=== PATIENT | female | born 1945 | race American Indian/Alaskan Native ===

== ENCOUNTER 2016-06-12 13:19 | Outpatient (CLI) | payer MEDICARE, OTHER ==
[2016-06-12 13:45] LABS: Hematocrit 34.3 % (30.3-42.9); Hemoglobin 11.6 gm/dl (10.1-14.3); Mean Corpuscular HGB Conc 34 % (30-34); Mean Corpuscular Hemoglobin 30 pg (28-32); Mean Corpuscular Volume 87 fl (79-97); Platelet Count 245 K/mm3 (140-440); Red Blood Count 3.92 M/mm3 (3.65-5.03); Red Cell Distribution Width 15.6 % (13.2-15.2); White Blood Count 9.6 K/mm3 (4.5-11.0)
[2016-06-12 14:10] LABS: BUN/Creatinine Ratio 14.61; Calcium 9.7 mg/dL (8.4-10.2); Phosphorous 4.7 mg/dL (2.5-4.5); Potassium 4.5 mmol/L (3.6-5.0)
== END 2016-06-12 13:20 | disposition home or self-care (01) ==
LOC: LAB 13:19
PROVIDERS: ATTEND Internal Medicine
DX: I12.9 Hypertensive chronic kidney disease with stage 1 through stage 4 chronic kidney disease, or unspecified chronic kidney disease (principal); N18.3 Chronic kidney disease, stage 3 (moderate); E11.22 Type 2 diabetes mellitus with diabetic chronic kidney disease; D63.1 Anemia in chronic kidney disease; E55.9 Vitamin D deficiency, unspecified
CPT/HCPCS: 36415; 80048; 82040; 82570; 84100; 84156; 85027

== ENCOUNTER 2017-01-10 13:43 | Outpatient (CLI) | payer MEDICARE, OTHER ==
--- NOTE | 2017-01-10 19:44 | XRay Report ---
FINAL REPORT EXAM: XR KNEE BILAT 4+V HISTORY: BILAT KNEE PAIN TECHNIQUE: Bilateral knees 7 views PRIORS: None. FINDINGS: There are bilateral total knee replacements. Prostatic components are intact and demonstrate normal expected positioning. No evidence for joint effusions. No bony fractures or abnormal bony lucencies are identified bilaterally. IMPRESSION: Bilateral total knee replacements with expected findings. No acute abnormality seen
== END 2017-01-10 13:44 | disposition home or self-care (01) ==
LOC: SPVIMAG 13:43
PROVIDERS: ATTEND Orthopaedic Surgery Sports Medicine
DX: M25.562 Pain in left knee (principal); M25.561 Pain in right knee; Z96.653 Presence of artificial knee joint, bilateral

== ENCOUNTER 2017-01-12 13:19 | Emergency (ER) | payer MEDICARE, OTHER ==
[2017-01-12 14:20] LABS: Hematocrit 37.6 % (30.3-42.9); Hemoglobin 12.7 gm/dl (10.1-14.3); Mean Corpuscular HGB Conc 34 % (30-34); Mean Corpuscular Hemoglobin 30 pg (28-32); Mean Corpuscular Volume 89 fl (79-97); Platelet Count 252 K/mm3 (140-440); Red Blood Count 4.23 M/mm3 (3.65-5.03); Red Cell Distribution Width 14.2 % (13.2-15.2); White Blood Count 6.2 K/mm3 (4.5-11.0)
[2017-01-12 14:23] LABS: Albumin 4.1 g/dL (3.9-5); Albumin/Globulin Ratio 1.5 %; Bilirubin,Total 0.2 mg/dL (0.1-1.2); Calcium 8.5 mg/dL (8.4-10.2); Chloride 98.4 mmol/L (98-107); Potassium 3.4 mmol/L (3.6-5.0); Total Protein 6.9 g/dL (6.3-8.2)
[2017-01-12] MEDS ORDERED: SUBLIMAZE IV ONE (15:55)
[2017-01-12] MEDS ORDERED: ZOFRAN IV ONE (15:55)
--- NOTE | 2017-01-12 16:00 | Emergency Department Report ---
HPI - General Chief Complaint: Back Pain/Injury Time Seen by Provider: 01/12/17 15:49 - HPI HPI: Room 26 The patient is a 71-year-old female presenting with chief complaint of right flank pain. Patient states this morning she developed pain in her right back and sharp and constant in nature. Patient denies dysuria or hematuria. Patient denies nausea or vomiting. Patient denies fever or other pain. Patient gives her flank pain score of 8/10 Location: Right back Duration: Constant since this morning Quality: Sharp Severity: 8/10 Modifying factors: [see above] Context: [see above] Mode of transportation: [not driving] ED Past Medical Hx - Past Medical History Hx Hypertension: Yes Hx Diabetes: Yes Hx GERD: Yes Hx Renal Disease: Yes Hx Arthritis: Yes Hx Headaches / Migraines: Yes Hx Kidney Stones: Yes - Surgical History Additional Surgical History: CLARI knee surg - Family History Family history: no significant - Social History Smoking Status: Never Smoker Substance Use Type: None - Medications Home Medications: Home Medications Medication Instructions Recorded Confirmed Last Taken Type Ascorbic Acid [Vitamin C] 1,000 mg PO DAILY 07/31/14 01/29/15 Unknown History Aspirin [Adult Low Dose Aspirin EC] 81 mg PO BID 07/31/14 01/29/15 01/28/15 History Atorvastatin (Nf) [Lipitor (Nf)] 10 mg PO DAILY 07/31/14 01/29/15 01/28/15 History Calcium Carb,Gluc/Mag Ox,Gluc 1 tab PO DAILY 07/31/14 01/29/15 01/28/15 History [Calcium Magnesium Caplet] Cholecalciferol Vit D3 [Vitamin D3] 2,000 unit PO QDAY 07/31/14 01/29/15 History Docusate Sodium [Colace] 100 mg PO BID 07/31/14 01/29/15 01/28/15 History Esomeprazole Magnesium [NexIUM] 10 mg PO QDAY 07/31/14 01/29/15 01/28/15 History HYDROcodone/ACETAMINOPHEN 1 tab PO DAILY 07/31/14 01/29/15 01/28/15 History [HYDROcodone-Acetaminophen 5-300 mg] Hydrochlorothiazide [Hctz] 12.5 mg PO QDAY 07/31/14 01/29/15 01/28/15 History Multivitamins-Mineral [Theragran-M] 1 tab PO DAILY 07/31/14 01/29/15 01/28/15 History Propranolol HCl 20 mg PO BID 07/31/14 01/29/15 01/28/15 History Risedronate Sodium [Atelvia] 35 mg PO QWEEK 07/31/14 01/29/15 01/27/15 History traMADol [Ultram 50 MG tab] 50 mg PO BID 07/31/14 01/29/15 01/28/15 History HYDROcodone/APAP 10-325 [Colwell 1 each PO Q6HR PRN #20 tablet 01/29/15 Unknown Rx 10/325] Insulin Glargine [Lantus] 0 units SQ QHS 01/29/15 01/29/15 1 Day Ago History ~01/28/15 amLODIPine [Norvasc] 10 mg PO DAILY 01/29/15 01/29/15 1 Day Ago History ~01/28/15 HYDROcodone/APAP 5-325 [[place]well 1 - 2 each PO Q6HR PRN #10 tablet 01/12/17 Unknown Rx 5/325] ED Review of Systems ROS: Stated complaint: BACK PAIN Other details as noted in HPI Constitutional: denies: fever Eyes: denies: eye pain ENT: denies: ear pain Cardiovascular: denies: chest pain Gastrointestinal: other (right flank pain). denies: nausea, vomiting Genitourinary: denies: urgency, dysuria Musculoskeletal: back pain Neurological: denies: headache Physical Exam - Physical Exam Vital Signs: Vital Signs 01/12/17 13:37 Temperature 98.9 F Pulse Rate 79 Respiratory 18 Rate Blood Pressure 159/74 O2 Sat by Pulse 99 Oximetry Physical Exam: GENERAL: The patient is well-developed well-nourished female lying on stretcher not appearing to be in acute distress. [] HEENT: Normocephalic. Atraumatic. Extraocular motions are intact. Patient has moist mucous membranes. NECK: Supple. Trachea midline CHEST/LUNGS: Clear to auscultation. There is no respiratory distress noted. HEART/CARDIOVASCULAR: Regular. There is no tachycardia. There is no gallop rub or murmur. ABDOMEN: Abdomen is soft, nontender. Patient has normal bowel sounds. There is no abdominal distention. SKIN: There is no rash. There is no edema. There is no diaphoresis. NEURO: The patient is awake, alert, and oriented. The patient is cooperative. The patient has normal speech MUSCULOSKELETAL: There is right flank pains. There is no evidence of acute injury. ED Course Vital Signs 01/12/17 13:37 Temperature 98.9 F Pulse Rate 79 Respiratory 18 Rate Blood Pressure 159/74 O2 Sat by Pulse 99 Oximetry - Reevaluation(s) Reevaluation #1: 01/12/17 17:59 Patient states she is pain-free currently. Her CT scan was reviewed with her and strong warnings to return should she develop other symptoms or any other concerns. Patient and family verbalized understanding ED Medical Decision Making - Lab Data Result diagrams: 01/12/17 14:10 01/12/17 13:42 Laboratory Tests 01/12/17 01/12/17 01/12/17 13:42 14:10 17:15 WBC 6.2 RBC 4.23 Hgb 12.7 Hct 37.6 MCV 89 MCH 30 MCHC 34 RDW 14.2 Plt Count 252 Sodium 140 Potassium 3.4 L Chloride 98.4 Carbon Dioxide 22 Anion Gap 23 BUN 10 Creatinine 1.1 Estimated GFR 59 BUN/Creatinine Ratio 9 Glucose 199 H Calcium 8.5 Total Bilirubin 0.20 AST 12 ALT 9 Alkaline Phosphatase 72 Total Protein 6.9 Albumin 4.1 Albumin/Globulin Ratio 1.5 Urine Color Yellow Urine Turbidity Clear Urine pH 6.0 Ur Specific [place] 1.006 Urine Protein <15 mg/dl Urine Glucose (UA) 50 Urine Ketones Neg Urine Blood Neg Urine Nitrite Neg Urine Bilirubin Neg Urine Urobilinogen < 2.0 Ur Leukocyte Esterase Neg Urine WBC (Auto) < 1.0 Urine RBC (Auto) 1.0 U Epithel Cells (Auto) < 1.0 - Radiology Data Radiology results: report reviewed (CT abdomen and pelvis), image reviewed (CT abdomen and pelvis) FINAL REPORT EXAM: CT ABDOMEN PELVIS WO CON HISTORY: right flank pain TECHNIQUE: CT abdomen and pelvis without contrast PRIORS: None. FINDINGS: No acute abnormality identified in the lung bases. No focal abnormality identified within the liver parenchyma. There are some small dense foci layering within the gallbladder likely reflecting small stones or sludge. There is evidence for prior gastric surgery. The spleen demonstrates normal size and attenuation. No pancreatic abnormalities seen. Kidneys demonstrate no evidence of hydronephrosis or nephrolithiasis. No ureteral calculus identified. The adrenal glands are unremarkable. Abdominal aorta is normal in caliber. No pathologically enlarged lymph nodes are identified. No signs of free fluid or free air No evidence of small bowel dilatation. The appendix is identified and is normal in size no adjacent inflammatory change seen. Urinary bladder is unremarkable. IMPRESSION: Cholelithiasis with small stones or sludge within the gallbladder Evidence for prior gastric surgery No acute abnormality seen. Transcribed By: JIMMY Dictated By: LISA MONTEIRO MD Electronically Authenticated By: LISA MONTEIRO MD Signed Date/Time: 01/12/171326 DD/ 26 TD/TT: 01/12/171326 - Differential Diagnosis renal colic, pyelonephritis, UTI Critical care attestation.: If time is entered above; I have spent that time in minutes in the direct care of this critically ill patient, excluding procedure time. ED Disposition Clinical Impression: Back pain Disposition: TO HOME OR SELFCARE Is pt being admited?: No Does the pt Need Aspirin: No Condition: Stable Instructions: Flank Pain (ED), Back Pain (ED) Additional Instructions: Return to the emergency department immediately should you develop worsening symptoms, fever, inability to tolerate food or liquid or any other concerns. Prescriptions: HYDROcodone/APAP 5-325 [Colwell 5/325] 1 - 2 each PO Q6HR PRN #10 tablet PRN Reason: Pain Referrals: PRIMARY CARE, [Primary Care Provider] - 3-5 Days REJI MORAN MD [Staff Physician] - 3-5 Days (Dr. Moran is an orthopedic surgeon. Please follow-up with him for further evaluation) Time of Disposition: 18:01
[2017-01-12 16:03] VITALS: BP 147/90
[2017-01-12 17:25] LABS: Bilirubin,Urine NEG (Negative); Blood,Urine NEG (Negative); Ketones,Urine NEG (Negative); Leukocyte Esterase,Urine NEG (Negative); Nitrite,Urine NEG (Negative); Protein,Urine <15 mg/dL mg/dL (Negative); Urobilinogen,Urine < 2.0 mg/dL (<2.0); WBC,Urine < 1.0 /HPF (0.0-6.0)
--- NOTE | 2017-01-12 17:30 | Cat Scan Report ---
FINAL REPORT EXAM: CT ABDOMEN PELVIS WO CON HISTORY: right flank pain TECHNIQUE: CT abdomen and pelvis without contrast PRIORS: None. FINDINGS: No acute abnormality identified in the lung bases. No focal abnormality identified within the liver parenchyma. There are some small dense foci layering within the gallbladder likely reflecting small stones or sludge. There is evidence for prior gastric surgery. The spleen demonstrates normal size and attenuation. No pancreatic abnormalities seen. Kidneys demonstrate no evidence of hydronephrosis or nephrolithiasis. No ureteral calculus identified. The adrenal glands are unremarkable. Abdominal aorta is normal in caliber. No pathologically enlarged lymph nodes are identified. No signs of free fluid or free air No evidence of small bowel dilatation. The appendix is identified and is normal in size no adjacent inflammatory change seen. Urinary bladder is unremarkable. IMPRESSION: Cholelithiasis with small stones or sludge within the gallbladder Evidence for prior gastric surgery No acute abnormality seen.
== END 2017-01-12 18:05 | disposition home or self-care (01) ==
LOC: ED 13:19
DX: R10.9 Unspecified abdominal pain (principal); M54.9 Dorsalgia, unspecified; I10 Essential (primary) hypertension; E11.9 Type 2 diabetes mellitus without complications; K21.9 Gastro-esophageal reflux disease without esophagitis; G43.909 Migraine, unspecified, not intractable, without status migrainosus; M19.90 Unspecified osteoarthritis, unspecified site; Z79.82 Long term (current) use of aspirin
CPT/HCPCS: 36415; 74176; 80053; 81001; 85027; 96374; 96375; 99284; J2405; J3010

== ENCOUNTER 2020-08-05 14:39 | Emergency (ER) | payer MEDICARE, OTHER ==
--- NOTE | 2020-08-05 15:18 | Emergency Department Report ---
HPI - General Chief Complaint: Altered Mental Status Time Seen by Provider: 08/05/20 14:49 - HPI HPI: This is a 75-year-old -[place] female who presents to the emergency department with what appears to be some altered mental status and some type of unresponsive episode. The patient is currently AAO x2, to person and place, but not time. She says "I do not know why they sent me in." I spoke to the patient's exploration driller, Ellie, who says that there was an episode this morning in which she "tried to stand up and then flopped back down in her chair." Apparently the patient then began vomiting. She had some weakness in her arms. The exploration driller felt that the patient had a facial droop. The patient appeared confused, more than usual. She walks with a rolling walker. She also has a history of hypertension, [id number] diabetes, and chronic kidney disease. ED Past Medical Hx - Past Medical History Hx Hypertension: Yes Hx Diabetes: Yes Hx GERD: Yes Hx Renal Disease: Yes Hx Arthritis: Yes Hx Headaches / Migraines: Yes Hx Kidney Stones: Yes Hx Dementia: Yes - Surgical History Additional Surgical History: CLARI knee surg - Social History Smoking Status: Never Smoker Substance Use Type: None - Medications Home Medications: Home Medications Medication Instructions Recorded Confirmed Last Taken Type Ascorbic Acid [Vitamin C] 1,000 mg PO DAILY 07/31/14 09/13/19 Unknown History Aspirin [Adult Low Dose Aspirin EC] 81 mg PO BID 07/31/14 09/13/19 01/28/15 History Atorvastatin (Nf) [Lipitor] 10 mg PO DAILY 07/31/14 09/13/19 01/28/15 History Calcium Carb,Gluc/Mag Ox,Gluc 1 tab PO DAILY 07/31/14 09/13/19 01/28/15 History [Calcium Magnesium Caplet] Cholecalciferol Vit D3 [Vitamin D3 2,000 unit PO QDAY 07/31/14 09/13/19 01/28/15 History 1,000 UNIT TAB] Docusate Sodium [Colace] 100 mg PO BID 07/31/14 09/13/19 01/28/15 History Esomeprazole Magnesium [NexIUM] 10 mg PO QDAY 07/31/14 09/13/19 01/28/15 History HYDROcodone/ACETAMINOPHEN 1 tab PO DAILY 07/31/14 09/13/19 01/28/15 History [HYDROcodone-Acetaminophen 5-300 mg] Multivitamins-Mineral [Theragran-M] 1 tab PO DAILY 07/31/14 09/13/19 01/28/15 History Propranolol HCl 20 mg PO BID 07/31/14 09/13/19 01/28/15 History Risedronate Sodium [Atelvia] 35 mg PO QWEEK 07/31/14 09/13/19 01/27/15 History HYDROcodone/APAP 10-325 [Holman 1 each PO Q6HR PRN #20 tablet 01/29/15 09/13/19 Unknown Rx 10/325] Insulin Glargine [Lantus] 0 units SQ QHS 01/29/15 09/13/19 1 Day Ago History ~01/28/15 amLODIPine [Norvasc] 10 mg PO DAILY 01/29/15 09/13/19 1 Day Ago History ~01/28/15 HYDROcodone/APAP 5-325 [Holman 1 - 2 each PO Q6HR PRN #10 tablet 01/12/17 09/13/19 Unknown Rx 5-325 mg TAB] Omeprazole 20 mg PO DAILY #30 capsule. 06/03/19 09/13/19 Unknown Rx AtorvaSTATin [Lipitor] 10 mg PO QHS 09/13/19 09/13/19 Unknown History Januvia 50 mg PO DAILY 09/13/19 09/13/19 Unknown History Tamsulosin [Flomax] 0.4 mg PO DAILY 09/13/19 09/13/19 Unknown History lisinopriL [Zestril TAB] 10 mg PO QDAY 09/13/19 09/13/19 Unknown History donepeziL [Aricept] 5 mg PO QHS #30 tablet 09/14/19 Unknown Rx traMADoL [Ultram 50 MG tab] 50 mg PO BID tablet 09/14/19 Unknown Rx Ondansetron [Zofran Odt] 4 mg PO Q8HR PRN #12 tab.rapdis 08/05/20 Unknown Rx ED Review of Systems ROS: Stated complaint: AMS Other details as noted in HPI Comment: Unobtainable due to pts medical conditions Physical Exam - Physical Exam Physical Exam: GENERAL: The patient is well-developed well-nourished. HENT: Normocephalic. Atraumatic. Patient has moist mucous membranes. EYES: Extraocular motions are intact. NECK: Supple. Trachea is midline. CHEST/LUNGS: Clear to auscultation. There is no respiratory distress noted. HEART/CARDIOVASCULAR: Regular. There is no tachycardia. There is no murmur. ABDOMEN: Abdomen is soft, nontender. Patient has normal bowel sounds. There is no abdominal distention. SKIN: Skin is warm and dry. NEURO: The patient is awake, alert. AAO x2 to person and place, but not year. No facial asymmetry. No pronator drift or dysmetria. Normal speech. MUSCULOSKELETAL: There is no tenderness or deformity. There is no limitation range of motion. ED Medical Decision Making - Lab Data Result diagrams: 08/05/20 15:20 08/05/20 15:20 Lab Results 08/05/20 08/05/20 08/05/20 Range/Units 15:20 15:20 15:20 WBC 8.9 (4.5-11.0) K/mm3 RBC 3.87 (3.65-5.03) M/mm3 Hgb 12.1 (10.1-14.3) gm/dl Hct 35.3 (30.3-42.9) % MCV 91 (79-97) fl MCH 31 (28-32) pg MCHC 34 (30-34) % RDW 15.3 H (13.2-15.2) % Plt Count 221 (140-440) K/mm3 Lymph % (Auto) 16.8 (13.4-35.0) % Will % (Auto) 9.5 H (0.0-7.3) % Eos % (Auto) 0.2 (0.0-4.3) % Baso % (Auto) 0.3 (0.0-1.8) % Lymph # (Auto) 1.5 (1.2-5.4) K/mm3 Will # (Auto) 0.8 (0.0-0.8) K/mm3 Eos # (Auto) 0.0 (0.0-0.4) K/mm3 Baso # (Auto) 0.0 (0.0-0.1) K/mm3 Seg Neutrophils % 73.2 H (40.0-70.0) % Seg Neutrophils # 6.5 (1.8-7.7) K/mm3 Sodium 138 (137-145) mmol/L Potassium 4.7 (3.6-5.0) mmol/L Chloride 99.5 (98-107) mmol/L Carbon Dioxide 24 (22-30) mmol/L Anion Gap 19 mmol/L BUN 27 H (7-17) mg/dL Creatinine 1.8 H (0.6-1.2) mg/dL Estimated GFR 33 ml/min BUN/Creatinine Ratio 15 % Glucose 219 H (65-100) mg/dL Calcium 9.9 (8.4-10.2) mg/dL Total Bilirubin 0.30 (0.1-1.2) mg/dL AST 11 (5-40) units/L ALT 5 L (7-56) units/L Alkaline Phosphatase 77 (35-129) units/L Ammonia 33.0 (25-60) umol/L Troponin T < 0.010 (0.00-0.029) ng/mL Total Protein 7.1 (6.3-8.2) g/dL Albumin 3.9 (3.9-5) g/dL Albumin/Globulin Ratio 1.2 % TSH (0.270-4.200) mlU/mL Urine Color (Yellow) Urine Turbidity (Clear) Urine pH (5.0-7.0) Ur Specific [place] (1.003-1.030) Urine Protein (Negative) mg/dL Urine Glucose (UA) (Negative) mg/dL Urine Ketones (Negative) mg/dL Urine Blood (Negative) Urine Nitrite (Negative) Urine Bilirubin (Negative) Urine Urobilinogen (<2.0) mg/dL Ur Leukocyte Esterase (Negative) Urine WBC (Auto) (0.0-6.0) /HPF Urine RBC (Auto) (0.0-6.0) /HPF U Epithel Cells (Auto) (0-13.0) /HPF Hyaline Casts /LPF Urine Mucus /HPF Urine Opiates Screen Urine Methadone Screen Ur Barbiturates Screen Ur Phencyclidine Scrn Ur Amphetamines Screen U Benzodiazepines Scrn Urine Cocaine Screen U Marijuana (THC) Screen Drugs of Abuse Note Plasma/Serum Alcohol (0-0.07) % 08/05/20 08/05/20 08/05/20 Range/Units 15:20 15:20 Unknown WBC (4.5-11.0) K/mm3 RBC (3.65-5.03) M/mm3 Hgb (10.1-14.3) gm/dl Hct (30.3-42.9) % MCV (79-97) fl MCH (28-32) pg MCHC (30-34) % RDW (13.2-15.2) % Plt Count (140-440) K/mm3 Lymph % (Auto) (13.4-35.0) % Will % (Auto) (0.0-7.3) % Eos % (Auto) (0.0-4.3) % Baso % (Auto) (0.0-1.8) % Lymph # (Auto) (1.2-5.4) K/mm3 Will # (Auto) (0.0-0.8) K/mm3 Eos # (Auto) (0.0-0.4) K/mm3 Baso # (Auto) (0.0-0.1) K/mm3 Seg Neutrophils % (40.0-70.0) % Seg Neutrophils # (1.8-7.7) K/mm3 Sodium (137-145) mmol/L Potassium (3.6-5.0) mmol/L Chloride (98-107) mmol/L Carbon Dioxide (22-30) mmol/L Anion Gap mmol/L BUN (7-17) mg/dL Creatinine (0.6-1.2) mg/dL Estimated GFR ml/min BUN/Creatinine Ratio % Glucose (65-100) mg/dL Calcium (8.4-10.2) mg/dL Total Bilirubin (0.1-1.2) mg/dL AST (5-40) units/L ALT (7-56) units/L Alkaline Phosphatase (35-129) units/L Ammonia (25-60) umol/L Troponin T (0.00-0.029) ng/mL Total Protein (6.3-8.2) g/dL Albumin (3.9-5) g/dL Albumin/Globulin Ratio % TSH 1.160 (0.270-4.200) mlU/mL Urine Color Yellow (Yellow) Urine Turbidity Clear (Clear) Urine pH 6.0 (5.0-7.0) Ur Specific [place] 1.009 (1.003-1.030) Urine Protein <15 mg/dl (Negative) mg/dL Urine Glucose (UA) Neg (Negative) mg/dL Urine Ketones Neg (Negative) mg/dL Urine Blood Neg (Negative) Urine Nitrite Neg (Negative) Urine Bilirubin Neg (Negative) Urine Urobilinogen < 2.0 (<2.0) mg/dL Ur Leukocyte Esterase Neg (Negative) Urine WBC (Auto) < 1.0 (0.0-6.0) /HPF Urine RBC (Auto) < 1.0 (0.0-6.0) /HPF U Epithel Cells (Auto) < 1.0 (0-13.0) /HPF Hyaline Casts 1 /LPF Urine Mucus Few /HPF Urine Opiates Screen Urine Methadone Screen Ur Barbiturates Screen Ur Phencyclidine Scrn Ur Amphetamines Screen U Benzodiazepines Scrn Urine Cocaine Screen U Marijuana (THC) Screen Drugs of Abuse Note Plasma/Serum Alcohol < 0.01 (0-0.07) % 08/05/20 Range/Units Unknown WBC (4.5-11.0) K/mm3 RBC (3.65-5.03) M/mm3 Hgb (10.1-14.3) gm/dl Hct (30.3-42.9) % MCV (79-97) fl MCH (28-32) pg MCHC (30-34) % RDW (13.2-15.2) % Plt Count (140-440) K/mm3 Lymph % (Auto) (13.4-35.0) % Will % (Auto) (0.0-7.3) % Eos % (Auto) (0.0-4.3) % Baso % (Auto) (0.0-1.8) % Lymph # (Auto) (1.2-5.4) K/mm3 Will # (Auto) (0.0-0.8) K/mm3 Eos # (Auto) (0.0-0.4) K/mm3 Baso # (Auto) (0.0-0.1) K/mm3 Seg Neutrophils % (40.0-70.0) % Seg Neutrophils # (1.8-7.7) K/mm3 Sodium (137-145) mmol/L Potassium (3.6-5.0) mmol/L Chloride (98-107) mmol/L Carbon Dioxide (22-30) mmol/L Anion Gap mmol/L BUN (7-17) mg/dL Creatinine (0.6-1.2) mg/dL Estimated GFR ml/min BUN/Creatinine Ratio % Glucose (65-100) mg/dL Calcium (8.4-10.2) mg/dL Total Bilirubin (0.1-1.2) mg/dL AST (5-40) units/L ALT (7-56) units/L Alkaline Phosphatase (35-129) units/L Ammonia (25-60) umol/L Troponin T (0.00-0.029) ng/mL Total Protein (6.3-8.2) g/dL Albumin (3.9-5) g/dL Albumin/Globulin Ratio % TSH (0.270-4.200) mlU/mL Urine Color (Yellow) Urine Turbidity (Clear) Urine pH (5.0-7.0) Ur Specific [place] (1.003-1.030) Urine Protein (Negative) mg/dL Urine Glucose (UA) (Negative) mg/dL Urine Ketones (Negative) mg/dL Urine Blood (Negative) Urine Nitrite (Negative) Urine Bilirubin (Negative) Urine Urobilinogen (<2.0) mg/dL Ur Leukocyte Esterase (Negative) Urine WBC (Auto) (0.0-6.0) /HPF Urine RBC (Auto) (0.0-6.0) /HPF U Epithel Cells (Auto) (0-13.0) /HPF Hyaline Casts /LPF Urine Mucus /HPF Urine Opiates Screen Presumptive negative Urine Methadone Screen Presumptive negative Ur Barbiturates Screen Presumptive positive Ur Phencyclidine Scrn Presumptive negative Ur Amphetamines Screen Presumptive negative U Benzodiazepines Scrn Presumptive negative Urine Cocaine Screen Presumptive negative U Marijuana (THC) Screen Presumptive negative Drugs of Abuse Note Disclamer Plasma/Serum Alcohol (0-0.07) % - EKG Data -: EKG Interpreted by Me EKG shows normal: sinus rhythm, axis, intervals, QRS complexes, ST-T waves Rate: normal - EKG Data When compared to previous EKG there are: previous EKG unavailable Interpretation: normal EKG - Radiology Data Radiology results: report reviewed, image reviewed interpreted by me: Chest x-ray does not show any acute process. There are no pleural effusions, obvious pneumonia and there is no pneumothorax. No widened mediastinum. CT head/brain wo con INDICATION: Altered mental status. TECHNIQUE: Routine CT head. All CT scans at this location are performed using CT dose reduction for ALARA by means of automated exposure control. COMPARISON: CT head September 17, 2019 FINDINGS: Intracranial: Choi-white matter differentiation is maintained. No intracranial hemorrhage. No extra axial collection. No hydrocephalus. No herniation. Sinuses: Paranasal sinuses and mastoid air cells are essentially clear. Orbits: Globes are intact. Calvarium: No acute fracture. IMPRESSION: 1. No acute intracranial abnormality. - Medical Decision Making This patient was sent in after her exploration driller saw her vomit and appeared to have some kind of unresponsive episode. Since being in the emergency department the patient has been awake, alert, but is AAO x2 to person and place but not time. She appears to have a diagnosis and/or previous history of dementia as she is on Aricept. Previous ER visits also show that the patient was similarly oriented at AAO x2. She does not have any focal, motor or sensory deficits and her cranial nerves are intact. CT head without contrast does not show any hemorrhage, large vessel occlusion, hydrocephalus, edema, or any other acute process. Chest x-ray does not show any pneumonia, pleural effusions, pneumothorax, widened mediastinum, or any other acute process. The patient's labs have been mostly unremarkable including CBC, metabolic panel, negative troponin, normal thyroid function, blood alcohol level, UDS and urinalysis. There is some renal insufficiency consistent with previous visits and a history of CKD. There is also some mild hyperglycemia, but the patient does not appear to be in diabetic ketoacidosis. The patient had one episode of vomiting while in the emergency department and w as given Zofran. She was able to pass an oral challenge without any further nausea or vomiting. She was also given 1 dose of IV labetalol for hypertension. The patient has been reevaluated multiple times over multiple hours and has been in the emergency department for over 5 hours. The patient has remained stable throughout her ED course and there has been no evidence of stroke, seizure, syncope, or any further unresponsive episodes. She will be discharged home to follow-up with primary care. She has been given an outpatient referral for neurology, at the request of her daughter, to follow- up regarding dementia. I also spoke with the daughter to let them know that she has chronic kidney disease but still should follow-up with a stockbroker. She will return to the emergency department with any worsening of her symptoms or with any acute distress. Critical Care Time: No Critical care attestation.: If time is entered above; I have spent that time in minutes in the direct care of this critically ill patient, excluding procedure time. ED Disposition Clinical Impression: Nausea & vomiting Qualifiers: Vomiting type: unspecified Vomiting Intractability: non-intractable Qualified Code(s): R11.2 - Nausea with vomiting, unspecified Dementia Qualifiers: Dementia type: unspecified type Hypertension Qualifiers: Hypertension type: essential hypertension Qualified Code(s): I10 - Essential (primary) hypertension CKD (chronic kidney disease) Qualifiers: Chronic kidney disease stage: unspecified stage Qualified Code(s): N18.9 - Chronic kidney disease, unspecified Disposition: TO HOME OR SELFCARE Is pt being admited?: No Condition: Stable Instructions: Nausea and Vomiting, Adult, Chronic Kidney Disease, Adult, Hypertension, Adult, Hypertension (ED) Additional Instructions: Please follow-up with your primary care physician in the next few days. Take all medications as prescribed. Try to stay away from foods that are high in salt and caffeinated products. Keep a blood pressure log. Try to stay away from foods that are high in sugar, carbohydrates and starches. Keep a blood sugar log. Return to the emergency department with any worsening of your symptoms, new or concerning symptoms not addressed during this current emergency department visit, or with any acute distress. Prescriptions: Ondansetron [Zofran Odt] 4 mg PO Q8HR PRN #12 tab.rapdis PRN Reason: Nausea Referrals: JAMESON WALTERS MD [Referring] - 3-5 Days PRIMARY CARE, [Primary Care Provider] - 2-3 Days Time of Disposition: 19:08
[2020-08-05 15:39] LABS: Basophils % (Auto) 0.3 % (0.0-1.8); Eosinophils % (Auto) 0.2 % (0.0-4.3); Hematocrit 35.3 % (30.3-42.9); Hemoglobin 12.1 gm/dl (10.1-14.3); Lymphocytes # (Auto) 1.5 K/mm3 (1.2-5.4); Lymphocytes % (Auto) 16.8 % (13.4-35.0); Mean Corpuscular HGB Conc 34 % (30-34); Mean Corpuscular Volume 91 fl (79-97); Monocytes # (Auto) 0.8 K/mm3 (0.0-0.8); Monocytes % (Auto) 9.5 % (0.0-7.3); Platelet Count 221 K/mm3 (140-440); Red Blood Count 3.87 M/mm3 (3.65-5.03); Red Cell Distribution Width 15.3 % (13.2-15.2)
--- NOTE | 2020-08-05 16:07 | XRay Report ---
XR chest 1V ap INDICATION / CLINICAL INFORMATION: Altered mental status. COMPARISON: None available. FINDINGS: SUPPORT DEVICES: None. HEART /PULMONARY VASCULATURE: No significant abnormality. LUNGS / PLEURA: Low lung volumes with streaky areas of volume loss. No focal airspace consolidation. No pleural effusion. No pneumothorax. ADDITIONAL FINDINGS: No significant additional findings. IMPRESSION: 1. No acute findings. Signer Name: Garcia Cummings MD Signed: 08/05/2020 4:02 PM Workstation Name: [id number]
[2020-08-05 16:09] LABS: Alanine Aminotransferase 5 units/L (7-56); Albumin 3.9 g/dL (3.9-5); BUN/Creatinine Ratio 15; Blood Urea Nitrogen 27 mg/dL (7-17); Calcium 9.9 mg/dL (8.4-10.2); Hemolysis Index 8
--- NOTE | 2020-08-05 16:15 | Cat Scan Report ---
CT head/brain wo con INDICATION: Altered mental status. TECHNIQUE: Routine CT head. All CT scans at this location are performed using CT dose reduction for A JOZEF by means of automated exposure control. COMPARISON: CT head September 17, 2019 FINDINGS: Intracranial: Choi-white matter differentiation is maintained. No intracranial hemorrhage. No extra a xial collection. No hydrocephalus. No herniation. Sinuses: Paranasal sinuses and mastoid air cells are essentially clear. Orbits: Globes are intact. Calvarium: No acute fracture. IMPRESSION: 1. No acute intracranial abnormality. Signer Name: Devin Lemon MD Signed: 08/05/2020 4:10 PM Workstation Name: [id number]
[2020-08-05] MEDS ORDERED: ONDANSETRON 4 MG/2 ML INJ IV ONE (17:34)
[2020-08-05 18:27] LABS: Bilirubin,Urine NEG (Negative); Blood,Urine NEG (Negative); Color,Urine Yellow (Yellow); Hyaline Casts,Urine 1 /LPF; Mucus,Urine FEW /HPF; Protein,Urine <15 mg/dL mg/dL (Negative); RBC,Urine < 1.0 /HPF (0.0-6.0); Urobilinogen,Urine < 2.0 mg/dL (<2.0); WBC,Urine < 1.0 /HPF (0.0-6.0)
[2020-08-05 18:35] LABS: Amphetamine Screen,Urine PRESUMPTIVE NEGATIVE; Benzodiazepines Screen,Urine PRESUMPTIVE NEGATIVE; Cannabinoid Screen,Urine PRESUMPTIVE NEGATIVE; Cocaine Screen,Urine PRESUMPTIVE NEGATIVE; Methadone Screen,Urine PRESUMPTIVE NEGATIVE; Opiate Screen,Urine PRESUMPTIVE NEGATIVE
[2020-08-05 19:58] VITALS: BP 173/66
--- NOTE | 2020-08-06 18:07 | Electrocardiograph Report ---
[facility] Test Date: 2020-08-05 Test Time: 15:43:29 Pat Name: TALAT MASTERS Department: Room: Gender: F Detail Technician: ANANT : 1945 Requested By: FREDA MALLORY Order Number: [id number] Reading MD: Osmany Villasenor Measurements Intervals [place] Rate: 72 P: [place]: QRS: 35 QRSD: 72 T: 81 QT: 391 QTc: 430 Interpretive Statements Normal sinus rhythm No previous ECG available for comparison Electronically Signed On 08-06-2020 18:06:50 EDT by Osmany Villasenor
== END 2020-08-05 19:58 | disposition home or self-care (01) ==
LOC: ED 14:39
DX: I12.9 Hypertensive chronic kidney disease with stage 1 through stage 4 chronic kidney disease, or unspecified chronic kidney disease (principal); E11.22 Type 2 diabetes mellitus with diabetic chronic kidney disease; N18.9 Chronic kidney disease, unspecified; F03.90 Unspecified dementia, unspecified severity, without behavioral disturbance, psychotic disturbance, mood disturbance, and anxiety; R11.2 Nausea with vomiting, unspecified; K21.9 Gastro-esophageal reflux disease without esophagitis; M19.91 Primary osteoarthritis, unspecified site; G43.909 Migraine, unspecified, not intractable, without status migrainosus; Z98.890 Other specified postprocedural states; Z79.4 Long term (current) use of insulin; Z79.899 Other long term (current) drug therapy
CPT/HCPCS: 36415; 70450; 71045; 80053; 80307; 81001; 82140; 84443; 84484; 85025; 93005; 96374; 96375; 99285; J2405; 80320; G0480